=== PATIENT | male | born 1980 | race Caucasian/White ===

== ENCOUNTER 2018-02-16 10:59 | Emergency (ER) | payer MEDICAID ==
[~2018-02-16] VITALS: Ht 185.4 cm; Wt 85.7 kg
[~2018-02-16 10:59] MED LIST: CYCL-1 PO; FAMO40TA73 PO; IBUP-1986 PO; PHEN-716 PO
[2018-02-16 11:33] VITALS: BP 152/92
[2018-02-16] MEDS ORDERED: CEPH-572 PO (12:38)
[2018-02-16] MEDS ORDERED: SULF1TAB49 PO (12:38)
== END 2018-02-16 12:50 | disposition home or self-care (01) ==
LOC: ER 11:00
DX: L02.811 Cutaneous abscess of head [any part, except face] (principal); L02.11 Cutaneous abscess of neck; L03.221 Cellulitis of neck; L03.811 Cellulitis of head [any part, except face]; L73.9 Follicular disorder, unspecified; G43.909 Migraine, unspecified, not intractable, without status migrainosus; Z59.0 Homelessness; Z86.14 Personal history of Methicillin resistant Staphylococcus aureus infection; Z56.0 Unemployment, unspecified; Z98.890 Other specified postprocedural states; Z79.899 Other long term (current) drug therapy
CPT/HCPCS: 99283

== ENCOUNTER 2018-05-01 09:56 | Emergency (ER) | payer MEDICAID ==
[~2018-05-01] VITALS: Ht 185.4 cm; Wt 78.8 kg
[2018-05-01 09:59] VITALS: BP 139/84
[2018-05-01] MEDS ORDERED: cephalexin 250mg capsule PO ONE (10:05)
[2018-05-01] MEDS ORDERED: SULF1TAB49 PO (10:26)
[2018-05-01] MEDS ORDERED: CEPH250T PO (10:26)
[2018-05-01] MEDS ORDERED: mupirocin 2% ointment 22GM TP STA (10:26)
[2018-05-01] MEDS ORDERED: mupirocin 2% nasal ointment 1gm UD NS STA (10:32)
== END 2018-05-01 10:55 | disposition home or self-care (01) ==
LOC: ER 09:56
DX: S61.203A Unspecified open wound of left middle finger without damage to nail, initial encounter (principal); G43.909 Migraine, unspecified, not intractable, without status migrainosus; Z86.14 Personal history of Methicillin resistant Staphylococcus aureus infection; Z98.890 Other specified postprocedural states; Z59.0 Homelessness; Z56.0 Unemployment, unspecified; Z79.899 Other long term (current) drug therapy; X58.XXXA Exposure to other specified factors, initial encounter; Y93.89 Activity, other specified; Y92.89 Other specified places as the place of occurrence of the external cause; Y99.8 Other external cause status
CPT/HCPCS: 99283